=== PATIENT | female | born 1965 | race Caucasian/White ===

== ENCOUNTER 2017-11-05 14:35 | Emergency (ER) | payer OTHER ==
[~2017-11-05 14:35] MED LIST: TETANUS AND DIPHTHERIA TOX/PF 0.5 ML VIAL. VAX IM ONE
--- NOTE | 2017-11-05 15:07 | PHYS DOC ---
Past History Past Medical History: No Pertinent History Smoking: Non-smoker Adult General Chief Complaint Chief Complaint: LACERATION/AVULSION HPI HPI 52-year-old female patient states she was walking to a gated parking and the parking garage arm fell on her face without loss of consciousness or fall. Patient complaining of laceration of for headache without nausea and vomiting, focal neuro deficit, blurred vision. Patient is not up-to-date with her tetanus immunization. Patient rated her pain mild and doesn't want to have pain medication. Review of Systems Review of Systems Constitutional: Denies fever or chills [] Eyes: Denies change in visual acuity, redness, or eye pain [] HENT: Denies nasal congestion or sore throat [] Respiratory: Denies cough or shortness of breath [] Cardiovascular: No additional information not addressed in HPI [] GI: Denies abdominal pain, nausea, vomiting, bloody stools or diarrhea [] : Denies dysuria or hematuria [] Musculoskeletal: Denies back pain or joint pain [] Integument: Reports laceration Neurologic: Denies focal weakness or sensory changes, reports headache [] Endocrine: Denies polyuria or polydipsia [] All other systems were reviewed and found to be within normal limits, except as documented in this note. Physical Exam Physical Exam Constitutional: Well developed, well nourished, mild distress, non-toxic appearance. [] HENT: Normocephalic, 3 cm superficial horizontal laceration in right side of forehead without active bleeding, bilateral external ears normal, oropharynx moist, no oral exudates, nose normal. [] Eyes: PERRLA, EOMI, conjunctiva normal, no discharge. [] Neck: Normal range of motion, no tenderness, supple, no stridor. [] Cardiovascular:Heart rate regular rhythm, no murmur [] Lungs & Thorax: Bilateral breath sounds clear to auscultation [] Abdomen: Bowel sounds normal, soft, no tenderness, no masses, no pulsatile masses. [] Skin: Warm, dry, no erythema, no rash. [] Back: No tenderness, no CVA tenderness. [] Extremities: No tenderness, no cyanosis, no clubbing, ROM intact, no edema. [] Neurologic: Alert and oriented X 3, normal motor function, normal sensory function, no focal deficits noted. [] Psychologic: Affect normal, judgement normal, mood normal. [] EKG EKG [] Radiology/Procedures Radiology/Procedures [] Course & Med Decision Making Course & Med Decision Making Evaluation of patient in ER showed 52-year-old female patient with laceration to face. Patient did not have neurodeficit and CT of head was not done. Laceration was repaired with Dermabond and Steri-Strip. Dragon Disclaimer Dragon Disclaimer This electronic medical record was generated, in whole or in part, using a voice recognition dictation system. Departure Departure: Impression: Primary Impression: Facial laceration Additional Impression: Head injury Disposition: HOME, SELF-CARE (At 1533) Condition: IMPROVED Referrals: CADE NOBLES MD (PCP) Patient Instructions: Head Injury, Adult, Tissue Adhesive Wound Care Additional Instructions: Follow-up with your primary care physician in 3-5 days Return to ER if not getting better Laceration Repair Lac Repair Indication: [Facial laceration Procedure time: 1525] Procedure: 3 cm forehead laceration was repaired with Dermabond and Steri- Strip. Total repaired wound length: [3 cm Other Items: [OTHER ITEMS] The patient tolerated the procedure [well]. Complications: [none]. Problem Qualifiers WANG CHERY MD Nov 05, 2017 15:07
== END 2017-11-05 15:57 | disposition home or self-care (01) ==
LOC: ER 14:35
DX: S09.90XA Unspecified injury of head, initial encounter (principal); S01.81XA Laceration without foreign body of other part of head, initial encounter; X58.XXXA Exposure to other specified factors, initial encounter; Y93.01 Activity, walking, marching and hiking; Y99.8 Other external cause status; Y92.89 Other specified places as the place of occurrence of the external cause
CPT/HCPCS: 12013; 90471; 90714; 99283-25